=== PATIENT | female | born 1945 | race Two or more races ===

== ENCOUNTER 2022-10-12 19:21 | Emergency (ER) | payer OTHER ==
[~2022-10-12] VITALS: Ht 157.5 cm; Wt 53.0 kg
[2022-10-12 19:58] LABS: Basophils # (auto) 0.1 10 ^3/uL (0-0.2); Basophils % (auto) 1.4 % (0.0-2.0); Eosinophils # (auto) 0.1 10 ^3/uL (0-0.8); Eosinophils % (auto) 1.5 % (0.0-7.0); Hematocrit 36.2 % (36.0-46.0); Hemoglobin 11.9 g/dL (12.2-16.2); Lymphocytes # (auto) 1.8 10 ^3/uL (0.4-5.4); Lymphocytes % (auto) 27.3 % (10.0-50.0); Mean Corpuscular Hemoglobin 27.9 pg (28.0-32.0); Mean Corpuscular Hgb Conc. 32.9 g/dL (32.0-36.0); Mean Corpuscular Volume 84.7 fL (80.0-100.0); Monocytes # (auto) 0.9 10 ^3/uL (0-1.3); Monocytes % (auto) 13.1 % (0.0-12.0); Neutrophils # (auto) 3.8 10 ^3/uL (1.6-8.6); Neutrophils % (auto) 56.7 % (37.0-80.0); Nucleated Red Blood Cells % 0.1 %; Red Blood Cells 4.28 10^6/uL (4.0-5.20); Red Cell Distribution Width 14.8 % (11.8-14.3); White Blood Cell 6.6 10^3/uL (4.4-10.8)
[2022-10-12 20:00] VITALS: BP 111/59; PULSE 75; RESP 17; O2SAT 97
[2022-10-12 20:15] LABS: INR 1.05 (0.9-1.15); Partial Thromboplastin Time 29.1 SEC (24.5-34.5)
[2022-10-12 20:29] LABS: Albumin 3.5 g/dL (3.4-5.0); Calcium 9.2 mg/dL (8.5-10.1); Magnesium 2.1 mg/dL (1.6-2.6)
[2022-10-12 20:31] LABS: BUN/Creatinine Ratio 22.9 (10.0-20.0)
[2022-10-12 20:34] LABS: Bilirubin, Total 0.4 mg/dL (0.2-1.0)
[2022-10-12 20:47] VITALS: PULSE 96
[2022-10-12] MEDS ORDERED: NITR0.4S29 SL (21:32)
== END 2022-10-12 22:00 | disposition home or self-care (01) ==
LOC: EDBD 19:21 → ER 19:21
DX: R07.89 Other chest pain (principal); R63.1 Polydipsia; J44.9 Chronic obstructive pulmonary disease, unspecified; I10 Essential (primary) hypertension; I25.10 Atherosclerotic heart disease of native coronary artery without angina pectoris; Z88.1 Allergy status to other antibiotic agents; Z88.6 Allergy status to analgesic agent; Z88.8 Allergy status to other drugs, medicaments and biological substances; Z79.899 Other long term (current) drug therapy
CPT/HCPCS: 36415; 71045; 80053; 83735; 83880; 84484; 85025; 85610; 85730; 93005